=== PATIENT | female | born 1930 | race Caucasian/White ===

== ENCOUNTER 2016-07-09 20:16 | Inpatient (IN) | payer OTHER ==
--- NOTE | ~2016-07-09 | CR72 ---
[facility] A Service of [facility] RADIOLOGY TEXT RESULTS PATIENT: JUAN LUIS PUENTE LOCATION: [facility] : 32 UNIT #: [id number] AGE: [address]: Ghazala Larry MD SEX: F ORDER DR: [id number] [facility] [address] [place], [place] [address] [id number] E MR#: [id number] Acc #: [id number] NAME: JUAN LUIS PUENTE : 1930 SEX: F STUDY DATE/TIME: 07/09/2016 20:09 UNIT: [facility] ROOM: STUDY DESCRIPTION: CR Chest Single View Portable Attending Physician: Cullen England M.D. Ordering Physician: Ed Doctor [id number] [facility] Primary Care Physician: Adriana Oliva M.D. MEDICAL IMAGING REPORT This report is preliminary unless electronic signature is present EXAM Chest x-ray portable HISTORY Cough, weakness for 2 months. No cancer or hypertension history indicated. COMMENT Single frontal portable view of the chest timed 20:09 on 07/09/16, compared to a film from 07/08/2016. FINDINGS There is evidence for old granulomatous disease. There is mild cardiomediastinal silhouette enlargement unchanged to slightly increased from yesterday's film. Mild increased prominence of parenchymal and vascular markings. While there is no kun congestive failure, please correlate for any clinical concern for subtle volume overload, given history. There may be a small amount of airspace disease or scarring at the left base laterally. There is no pleural effusion or pneumothorax. IMPRESSION Mild cardiomediastinal silhouette enlargement and mild prominence of vascular and interstitial markings when compared yesterday's film. Please correlate for any clinical concern for subtle volume overload. There is no pleural effusion. There may be a small amount of airspace disease or parenchymal scarring at the left base laterally. There is no pneumothorax. Dictated by... Floresita Maldonado M.D. THIS IS AN ELECTRONICALLY VERIFIED REPORT [facility] A Service of [facility] RADIOLOGY TEXT RESULTS PATIENT: JUAN LUIS PUENTE LOCATION: [facility] [id number] : 32 UNIT #: [id number] AGE: [address]: Ghazala Larry MD SEX: F ORDER DR: Floresita Maldonado M.D. at 07/10/2016 12:01 AM GEOVANI/jeimy TD: 07/09/2016 22:41 JOB #: [id number] MEDICAL IMAGING REPORT COPY
--- NOTE | ~2016-07-09 | EKG ---
PATIENT: JUAN LUIS PUENTE UNIT #: [id number] Ventricular Rate: 78 BPM Atrial Rate: 78 BPM P-R Interval: 124 ms QRS Duration: 106 ms Q-T Interval: 356 ms QTC Calculation(Bezet): 405 ms P [place]: 59 degrees Calculated R [place]: -11 degrees Calculated T [place]: 34 degrees Diagnosis Line: Sinus rhythm with Premature atrial complexes Diagnosis Line: Otherwise normal ECG Diagnosis Line: No previous ECGs available Diagnosis Line: Confirmed by KAREEM GALLARDO MD ([id number]) on Diagnosis Line: 07/10/2016 8:02:35 AM INTERPRETING MD: TROY
--- NOTE | ~2016-07-09 | HP ---
Unit #: [id number] #: [id number] Patient: JUAN LUIS PUENTE [id number] [address] [place], [place] [address] [id number] I MR#: [id number] NAME: JUAN LUIS PUENTE ROOM: 471 Age: 85 Sex: F Admission Date: 07/09/2016 : 1930 Attending Physician: Ghazala Larry M.D. Primary Care Physician: Adriana Oliva M.D. HISTORY AND PHYSICAL 2nd REVISION CHIEF COMPLAINT Acute kidney injury. HISTORY This pleasant 85-year-old female with hyperlipidemia, hypothyroidism, DJD, is admitted for acute kidney injury. The patient states that she was recently evaluated this fall for decreased energy and some shortness of breath. [facility] scans, along with echo. She was unable to receive IV dye for the CT scans, as I believe her kidney function was likely borderline abnormal. She was seen recently by Dr. Garcia, started on Breo and was told that she will need CPAP or BiPAP, currently is in on nocturnal oxygen. Saw Dr. Oliva nurse practitioner yesterday and she is again experiencing decreasing energy. Labs were drawn and the patient was told to go to the ER because her creatinine was 2.6. The patient states that she has been eating well except for an episode of nausea and vomiting last week. Denies change in her urinary output, and no urinary symptoms. She presents to this emergency department with blood pressure of 173/95. Denies previous history of hypertension. Her creatinine is up from 2.1, up from a creatinine of 0.7 four years ago. Urine is suspicious for possible UTI, and the patient's calcium is elevated at 11.9. In the ER she was bolused with 500 mL of normal saline, given 1 g of Rocephin and referred for admission. Reviewing her medication she does take high dose Naprosyn, and does take calcium. She is not anemic. PAST MEDICAL HISTORY 1. Hyperlipidemia. 2. Recent diagnosis of asthma by Dr. Garcia and perhaps obstructive sleep apnea. 3. Skin cancer removed. 4. Hypothyroidism. 5. DJD. 6. Progressive weight loss, decreased energy, shortness of breath, being evaluated as an outpatient. 7. T and A. 8. D and C. 9. Cataract extraction. 10. Fibrocystic breast requiring surgery. 11. Oral surgery. ALLERGIES Unit #: [id number] #: [id number] Patient: JUAN LUIS PUENTE. HOME MEDICATIONS 1. Singulair 10 mg daily. 2. Patient is finishing a course of prednisone. 3. Breo Ellipta daily. 4. Albuterol as needed. 5. Bimatoprost eye drops daily. 6. Calcium plus D 1200 mg daily. 7. Zyrtec 10 mg daily as needed. 8. Synthroid 0.5 mg daily 9. Naprosyn 500 mg b.i.d. 10. Fish oil. 11. Zoloft 50 mg daily. 12. MiraLAX. 13. Zocor 20 mg q.h.s. FAMILY HISTORY Negative for heart or kidney disease. SOCIAL HISTORY The patient lives with her of about 65 years. Seldom drinks alcohol. Is a lifelong nonsmoker. REVIEW OF SYSTEMS Notable for some shortness of breath, hyperlipidemia, weight loss, progressive decreased energy, asthma, skin cancer excised, hypothyroidism, DJD, above mentioned surgeries. All other systems were reviewed and are negative. PHYSICAL EXAMINATION GENERAL: Pleasant, thin, 85-year-old female currently in no acute distress. VITAL SIGNS: Temperature 98, pulse 83, respirations 15, blood pressure 173/95, O2 saturations 93% on room air. HEENT: Eyes - PERRLA. Extraocular muscles are intact, status post bilateral cataract extraction. Pharynx is benign. NECK: Supple without adenopathy or thyromegaly. CHEST: Reveals a few crackles at the bases. CARDIAC: Normal S1 and S2, occasionally irregular. No JVD is noted. ABDOMEN: Bowel sounds are present. No hepatosplenomegaly, tenderness, or masses. EXTREMITIES: Without clubbing, cyanosis or edema. Pedal pulses are present. NEUROLOGIC: Patient is awake, alert, and oriented. Cranial nerves are intact. Equal strength throughout. DIAGNOSTIC STUDIES ADMISSION LABS: Hematocrit is 35.1, white blood count is 12.7, normal platelet count. SMA 12 - BUN 43, creatinine 2.1, up from a creatinine of 0.7 four years ago. Calcium is 11.9. Urinalysis - positive leukocyte esterase with 10-25 white cells, 4+ bacteria, only occasional squamous epithelial cell noted. IMAGING STUDIES: Chest x-ray shows a slight increased cardiomegaly, mild increased interstitial markings. CARDIOLOGY STUDIES: EKG - sinus rhythm rate 78 with APCs. Unit #: [id number] #: [id number] Patient: JUAN LUIS PUENTE ASSESSMENT 1. Acute kidney injury, possible secondary to little dehydration and Naprosyn. But obviously need to recheck after hydration and workup further, if not improving after hydration and discontinuation of Naprosyn. 2. Hypercalcemia. 3. Again will hydrate and recheck. In the morning check an ionized calcium, along with serum protein electrophoresis and a parathyroid level. Calcium is not improving and will need further workup. 4. Dyspnea being followed by Dr. Garcia. 5. Possible obstructive sleep apnea. 6. Hypothyroidism. 7. Weight loss being worked up as an outpatient. 8. Probable UTI. 9. Newly elevated blood pressure. PLANS 1. IV hydration. 2. Discontinue calcium plus D and discontinue Naprosyn. Will check a renal ultrasound and post void bladder scan. Serum protein electrophoresis will also be obtained. 3. Recheck labs in the morning after hydration and discontinuation of above mentioned medications. Check thyroid function test, serum protein electrophoresis, ionized calcium. Also parathyroid hormone. If still hypercalcemic, will need further workup. 4. Monitor blood pressure and treat if persistently elevated. 5. DVT prophylaxis. 6. Obtain previous CT scans and echo report from [facility] done recently. 7. Rocephin pending urine C and S. 8. If renal function is not improving, etc, will ask consultants to see. 9. 1. Dictated by Franc Peters/gely TD: 07/10/2016 04:58 JOB #: [id number] HISTORY AND PHYSICAL X Ghazala Larry MD X HISTORY AND PHYSICAL
--- NOTE | ~2016-07-09 | US77 ---
[facility] A Service of [facility] RADIOLOGY TEXT RESULTS PATIENT: JUAN LUIS PUENTE LOCATION: [facility] : 32 UNIT #: [id number] AGE: [address]: Cuca Kahn MD SEX: F ORDER DR: [id number] [facility] [address] [facility] [place], [place] [address] [id number] I MR#: [id number] Acc #: [id number] NAME: JUAN LUIS PUENTE : 1930 SEX: F STUDY DATE/TIME: 07/10/2016 8:43 UNIT: [facility] ROOM: [facility] STUDY DESCRIPTION: US Kidney Bilateral Complete Attending Physician: Cuca Kahn M.D. Ordering Physician: Ghazala Larry M.D. Primary Care Physician: Adriana Oliva M.D. MEDICAL IMAGING REPORT This report is preliminary unless electronic signature is present EXAM Renal ultrasound INDICATIONS Acute kidney injury. BUN 39, creatinine 1.9, GFR 28.6 PROCEDURE Barron-scale and Doppler imaging of the kidneys and bladder. COMPARISON None FINDINGS Right kidney measures 9.9 cm. No hydronephrosis. Unremarkable bladder. Left kidney measures 12.1 cm, no hydronephrosis. IMPRESSION Negative renal ultrasound. Dictated by... Per Soriano M.D. THIS IS AN ELECTRONICALLY VERIFIED REPORT Per Soriano M.D. at 07/11/2016 7:13 AM RIAZD/jeimy TD: 07/10/2016 12:32 JOB #: [id number] MEDICAL IMAGING REPORT [facility] A Service [facility] RADIOLOGY TEXT RESULTS PATIENT: JUAN LUIS PUENTE LOCATION: [facility]05-18 : 32 UNIT #: [id number] AGE: [address]: Cuca Kahn MD SEX: F ORDER DR: COPY
[~2016-07-09 20:16] MED LIST: ALBUTEROL0.83 MG/ML INH; BENTYL10 MG PO; BIMATOPROST2.5 ML OU; BREO ELLIPTA I1 EACH INH; CALCIUM 600 +1 EAC7 PO; DELTASONE20 MG PO; FIORICET 50-321 EACH PO; FLONASE16 GM; LEVOXYL50 MC1 PO; MIRALAX17 GM PO; NAPROXEN500 M1 PO; OMEGA-3 FISH1200 MG PO; SERTRALINE HCL50 M1 PO; SIMVASTATIN20 MG PO; SINGULAIR PO; ZOFRAN ODT4 MG PO; ZYRTEC10 M1 PO
[2016-07-09 20:18] LABS: BASOPHIL% 0.2 % (0-2.5); EOSINOPHIL% 0.1 % (0.0-7.0); HEMATOCRIT 35.1 % (35.0-45.0); HEMOGLOBIN 11.7 gm/dL (12.0-16.0); LYMPHOCYTE# 0.8 X10e3 (1.0-3.5); LYMPHOCYTE% 6.3 % (17.0-45.0); MEAN CELL VOLUME 90.1 FL (83-96); MEAN CORPUSCULAR HGB CONC 33.2 g/dL (30-36); MEAN PLATELET VOLUME 8.5 FL (6.5-11.5); MONOCYTE# 0.4 X10e3 (0-1.0); MONOCYTE% 3.4 % (3.0-12.0); NEUTROPHIL# 11.5 X10e3 (1.5-7.1); PLATELET COUNT 233 X10e3 (140-420); RED BLOOD COUNT 3.89 X10e (3.90-5.30); RED CELL DISTRIBUTION WIDTH 13.4 % (11.0-15.5); WHITE BLOOD COUNT 12.7 X10e3 (4.0-10.5)
[2016-07-09 20:20] LABS: DIFF IND NO
[2016-07-09 20:31] LABS: BILIRUBIN, DIRECT 0.1 mg/dL (0.0-0.2); BILIRUBIN,TOTAL 1.1 mg/dL (0.2-2.0); BUN/CREATININE RATIO 20.47; CALCIUM SERUM 11.9 mg/dL (8.4-10.2); CREATININE SERUM 2.1 mg/dL (0.6-1.4); GLOM FILT RATE Estimated 23.9 mL/min (>60); POTASSIUM 4.2 mmol/L (3.5-5.1); PROTEIN TOTAL SERUM 7.4 g/dL (6.0-8.3)
[2016-07-09 21:07] LABS: URINE SOURCE CLEAN CATCH
[2016-07-09 21:43] LABS: URINE APPEARANCE CLEAR; URINE BILIRUBIN NEG (NEG); URINE BLOOD NEG (NEG); URINE COLOR YELLOW; URINE GLUCOSE NEG (NEG); URINE KETONE NEG (NEG); URINE LEUKOCYTE ESTERASE 1+ (NEG); URINE NITRATE NEG (NEG); URINE PH 6.5 (5-8); URINE PROTEIN NEG (NEG); URINE SPECIFIC GRAVITY 1.018 (1.003-1.035); URINE UROBILINOGEN 0.2 MG/DL (NEG)
[2016-07-09 21:45] LABS: CULTURE INDICATED? YES; URBCS1 AUWI 0-2 /[HPF] (0-2); URINE BACTERIA AUWI 4+ (NEGATIVE); URINE SQUAMOUS EPITHELIAL CELL OCC /[HPF]
[2016-07-10 05:51] LABS: BASOPHIL% 0.1 % (0-2.5); EOSINOPHIL% 0.4 % (0.0-7.0); HEMATOCRIT 31.1 % (35.0-45.0); HEMOGLOBIN 10.5 gm/dL (12.0-16.0); LYMPHOCYTE# 1.1 X10e3 (1.0-3.5); LYMPHOCYTE% 10.1 % (17.0-45.0); MEAN CELL VOLUME 90.1 FL (83-96); MEAN CORPUSCULAR HEMOGLOBIN 30.5 PG (28-34); MEAN CORPUSCULAR HGB CONC 33.8 g/dL (30-36); MEAN PLATELET VOLUME 8.1 FL (6.5-11.5); MONOCYTE# 1.2 X10e3 (0-1.0); NEUTROPHIL# 8.7 X10e3 (1.5-7.1); NEUTROPHIL% 78.4 % (40-75); PLATELET COUNT 196 X10e3 (140-420); RED BLOOD COUNT 3.46 X10e (3.90-5.30); RED CELL DISTRIBUTION WIDTH 13.2 % (11.0-15.5); WHITE BLOOD COUNT 11.1 X10e3 (4.0-10.5)
[2016-07-10 05:56] LABS: DIFF IND NO
[2016-07-10 06:41] LABS: THYROID STIMULATING HORMONE 0.68 uIU/ml (0.34-5.60)
[2016-07-10 06:48] LABS: FREE THYROXIN (T4) 0.99 ng/dL (0.58-1.64)
[2016-07-10 07:02] LABS: ALBUMIN SERUM 3.1 g/dL (3.5-5.0); BILIRUBIN,TOTAL 0.7 mg/dL (0.2-2.0); BUN/CREATININE RATIO 21.66; CALCIUM SERUM 10.3 mg/dL (8.4-10.2); CREATININE SERUM 1.8 mg/dL (0.6-1.4); GLOM FILT RATE Estimated 28.6 mL/min (>60); POTASSIUM 3.7 mmol/L (3.5-5.1); PROTEIN TOTAL SERUM 6.1 g/dL (6.0-8.3)
[2016-07-10 17:05] LABS: ALBUMIN SERUM 3.6 g/dL (3.5-5.0); BILIRUBIN,TOTAL 0.9 mg/dL (0.2-2.0); BUN/CREATININE RATIO 21.76; CREATININE SERUM 1.7 mg/dL (0.6-1.4); GLOM FILT RATE Estimated 30.5 mL/min (>60); POTASSIUM 3.6 mmol/L (3.5-5.1)
[2016-07-10] MEDS ORDERED: LEVAQUIN250 MG PO (17:58)
[2016-07-10] MEDS ORDERED: NORVASC PO (18:01)
[2016-07-15 22:14] LABS: SPE A1GLOB (PNL) 0.3 g/dL (0.2-0.3); SPE A2GLOB (PNL) 0.7 g/dL (0.5-0.9); SPE ALB (PNL) 3.2 g/dL (3.8-4.8); SPE BETA 1 GLOBULIN 0.3 g/dL (0.4-0.6); SPE BETA 2 GLOBULIN 0.2 g/dL (0.2-0.5); SPETP (PNL) 5.7 g/dL (6.1-8.1)
== END 2016-07-10 18:40 | disposition home or self-care (01) | DRG 683 ==
LOC: CED 20:16 → CEDOF 23:15 → C4C 07-10 00:20
PROVIDERS: Emergency Medicine; Internal Medicine
DX: N17.9 Acute kidney failure, unspecified (principal); N39.0 Urinary tract infection, site not specified; E86.0 Dehydration; E83.52 Hypercalcemia; E78.5 Hyperlipidemia, unspecified; E03.9 Hypothyroidism, unspecified; Z98.49 Cataract extraction status, unspecified eye; Z88.5 Allergy status to narcotic agent
CPT/HCPCS: 36415; 71010; 76770; 80048; 80053; 80076; 81003; 82310; 82330; 82607; 83970; 84165; 84439; 84443; 85025; 87086; 87088; 87186; 93005; 94640; 94760; 99285; J0696

== ENCOUNTER → 2016-08-27 | Outpatient (CLI) | payer OTHER ==
[~2016-08-27] MED LIST changes: +LEVAQUIN250 MG PO; +NORVASC PO
== END | disposition home or self-care (01) ==
LOC: CECH 12:29
DX: I45.10 Unspecified right bundle-branch block (principal); R06.02 Shortness of breath; R53.83 Other fatigue
CPT/HCPCS: 93306

== ENCOUNTER 2016-09-09 19:18 | Inpatient (IN) | payer OTHER ==
--- NOTE | ~2016-09-09 | MR113 ---
[facility] A Service of [facility] RADIOLOGY TEXT RESULTS PATIENT: JUAN LUIS PUENTE LOCATION: [facility] 242-01 : 32 UNIT #: [id number] AGE: [address]: Traci Le MD SEX: F ORDER DR: [id number] [facility] [address]. [place], [place] [address] [id number] I MR#: [id number] Acc #: [id number] NAME: JUAN LUIS PUENTE : 1930 SEX: F STUDY DATE/TIME: 09/10/2016 9:24 UNIT: [facility] ROOM: [facility] STUDY DESCRIPTION: MR Lumbar Wo Contrast Attending Physician: Traci Le M.D. Ordering Physician: Ghazala Larry M.D. Primary Care Physician: Adriana Oliva M.D. MRI CENTER REPORT This report is preliminary unless electronic signature is present. EXAM Lumbar spine MRI, no contrast, 09/10/2016. PROCEDURE Routine unenhanced lumbar spine MRI. COMPARISON None HISTORY Low back and bilateral leg pain radiating to knees for about 2 months. FINDINGS There is a grade 1 L4-L5 degenerative anterolisthesis without pars defect. Alignment is otherwise normal. There are degenerative marrow signal changes around the L4-L5 disc, but bone marrow signal is otherwise normal, and the distal cord and conus are normal in position and appearance. At L1-L2, there is a slight disc bulge, but no canal stenosis. There is borderline left and no right foraminal stenosis. At L2-L3, there is a slight disc bulge and mild canal stenosis and mild right and left foraminal stenosis. At L3-L4, there is a broad disc bulge and facet arthropathy and mild to moderate canal stenosis and mild left and borderline to mild foraminal stenosis. At L4-L5, there is anterolisthesis, pseudo disc bulge, facet arthropathy, and moderate canal stenosis and moderate or moderate to severe right and mild to moderate left foraminal stenosis. [facility] A Service of [facility] RADIOLOGY TEXT RESULTS PATIENT: JUAN LUIS PUENTE LOCATION: A 242-01 : 32 UNIT #: [id number] AGE: [address]: Traci Le MD SEX: F ORDER DR: At L5-S1, there is degenerative change and towq-wofxjux-jydr-right facet arthropathy, but no canal stenosis, and moderate left and no right foraminal stenosis. IMPRESSION Degenerative changes with areas of canal and foraminal narrowing above. Overall, changes are most pronounced at L4-L5, where there is a degenerative grade 1 anterolisthesis and moderate canal stenosis. See above for lioxr-zi-wvcni details. Dictated by... Joe Sharp M.D. THIS IS AN ELECTRONICALLY VERIFIED REPORT Joe Sharp M.D. at 09/11/2016 3:53 PM ESTELLE/amita TD: 09/10/2016 12:44 JOB #: [id number] MRI CENTER REPORT Page 1 of 1 COPY
--- NOTE | ~2016-09-09 | CT4 ---
[facility] A Service of [facility] RADIOLOGY TEXT RESULTS PATIENT: JUAN LUIS PUENTE LOCATION: [facility] : 32 UNIT #: [id number] AGE: [address]: Traci Le MD SEX: F ORDER DR: [id number] [facility] [address] [place], [place] [address] [id number] I MR#: [id number] Acc #: [id number] NAME: JUAN LUIS PUENTE : 1930 SEX: F STUDY DATE/TIME: 09/10/2016 9:04 UNIT: C2A ROOM: 242 STUDY DESCRIPTION: CT Abd and Pelv Wo Cont Attending Physician: Traci Le M.D. Ordering Physician: Ghazala Larry M.D. Primary Care Physician: Adriana Oliva M.D. MEDICAL IMAGING REPORT This report is preliminary unless electronic signature is present EXAM CT abdomen and pelvis without contrast, 09/10/2016. PROCEDURE Axial CT abdomen and pelvis with oral contrast and multiplanar reformats. This CT exam was performed with one or more of the following radiation dose reduction techniques: automatic exposure control, adjustment of mA and/or kV according to patient size, and iterative reconstruction. COMPARISON STUDIES None CLINICAL HISTORY Back pain for 2 days and weight loss for six months. FINDINGS LUNG BASES: See accompanying chest CT. ABDOMEN: Unenhanced images of the liver, gallbladder, spleen, and pancreas are normal. The aorta is normal in caliber. The kidneys and adrenal glands are normal. Oral contrast has reached the transverse colon at the time of the exam. There is no evidence of bowel obstruction. There is some left colonic and sigmoid diverticulosis but there is no CT evidence to suggest diverticulitis. The appendix is normal. The aorta is normal in caliber. IMPRESSION 1. No acute findings. [facility] A Service [facility] RADIOLOGY TEXT RESULTS PATIENT: JUAN LUIS PUENTE LOCATION: [facility] : 32 UNIT #: [id number] AGE: [address]: Traci Le MD SEX: F ORDER DR: 2. Diverticulosis without diverticulitis. 3. Normal appendix. 4. No evidence of renal or bowel or biliary obstruction. Dictated by... Joe Sharp M.D. THIS IS AN ELECTRONICALLY VERIFIED REPORT Joe Sharp M.D. at 09/11/2016 3:53 PM ESTELLE/kamar TD: 09/10/2016 11:24 JOB #: [id number] MEDICAL IMAGING REPORT Page 1 of 1 COPY
--- NOTE | ~2016-09-09 | HP ---
Unit #: [id number] #: [id number] Patient: JUAN LUIS PUENTE [id number] [facility]. [place], [place] [address] [id number] I MR#: [id number] NAME: JUAN LUIS PUENTE. ROOM: 242 Age: 85 Sex: F Admission Date: 09/09/2016 : 1930 Attending Physician: Ghazala Larry M.D. Primary Care Physician: Adriana Oliva M.D. HISTORY AND PHYSICAL CHIEF COMPLAINT Acute on chronic kidney disease with hypercalcemia. HISTORY OF PRESENT ILLNESS This 85-year-old female with hyperlipidemia, hypertension, hypothyroidism, is admitted for acute on chronic kidney disease. The patient states that over the past week she has been a bit nauseous and fatigued. She was seen by her nurse practitioner yesterday and labs were performed showing worsening kidney function. She was, therefore, told to come to the emergency department today. In the ER, her current creatinine is 2.7 up from a creatinine of 1.7 in June. BUN is 24. The patient denies nonsteroidal antiinflammatory drugs. She states that she has been eating and drinking and urinating adequately. The patient was last admitted 06/2016 for acute on chronic kidney injury and was noted to be hypercalcemic at that time as well. Renal ultrasound was negative. She was found to have a low parathyroid hormone level, negative serum protein electrophoresis. She apparently had some CT scans last fall at [facility] due to progressive weight loss. She continues to have some weight loss, notes increasing lower back pain. On examination, she does have some shotty left axillary lymphadenopathy. Her calcium currently is 13.3. In June, her ionized calcium was elevated as well. Her thyroid function tests were normal. Currently, in the ER, she was bolused with a liter of saline and is referred for admission. She plans to see Dr. Paulino as an outpatient in November. PAST MEDICAL HISTORY 1. Hyperlipidemia. 2. Asthma and obstructive sleep apnea followed by Dr. Garcia. 3. Skin cancer removed. 4. Hypothyroidism. 5. DJD. 6. Progressive weight loss, decreased energy, shortness of breath 06/2016 for acute on chronic kidney disease. Again, renal ultrasound was negative. The patient was noted to be hypercalcemic. She had a negative serum protein electrophoresis, low parathyroid hormone level and an elevated ionized calcium. 7. T and A. 8. D and C. 9. Cataract extraction. 10. Fibrocystic breasts requiring surgery. 11. Oral surgery. Unit #: [id number] #: [id number] Patient: JUAN LUIS PUENTE SOCIAL HISTORY The patient lives with her of 65 years, seldom drinks alcohol, is a lifelong nonsmoker. FAMILY HISTORY Negative for heart and lung disease. ALLERGIES Codeine. HOME MEDICATIONS 1. The patient takes calcium I am told. 2. Zocor 20 mg daily. 3. Zoloft 50 mg daily. 4. Norvasc 5 mg daily. 5. B complex. 6. Fish oil. 7. Centrum Silver. 8. MiraLax. REVIEW OF SYSTEMS Notable for some back pain, feeling weak, tired, some nausea, hyperlipidemia, asthma, SAMEER, skin cancer, hypothyroidism, DJD, progressive weight loss, above-mentioned surgeries, chronic kidney disease, hypertension. All other systems were reviewed and are negative. PHYSICAL EXAMINATION GENERAL APPEARANCE: A pleasant, 85-year-old young appearing female currently in no acute distress. VITAL SIGNS: Temperature 97.8. Pulse 90. Respiration 16. Blood pressure 141/73. O2 saturation 100% on room air. HEENT: Eyes: PERRLA. Extraocular muscles are intact. Pharynx is benign. NECK: Supple without adenopathy or thyromegaly. CHEST: Clear. CARDIAC: Normal S1, S2 with a 2/6 systolic murmur heard best at the upper sternal borders. ABDOMEN: Bowel sounds are present. No hepatosplenomegaly, tenderness or masses. EXTREMITIES: Without edema. Pedal pulses are present. LYMPHATIC: There is shotty left axillary lymphadenopathy noted on exam. NEUROLOGIC: The patient is awake, alert, oriented. Cranial nerves are intact. Equal strength throughout. BACK: Without spinal percussion tenderness. Negative straight leg raising. DIAGNOSTIC STUDIES LABORATORY: Hematocrit 35.6, normal white count and platelet count. SMA-12: BUN 24, creatinine 2.7 up from a BUN of 37, creatinine 1.7 in June. Sodium 133, chloride 94, calcium 13.3 with a normal albumin. Urinalysis is negative. IMAGING: Chest x-ray: COPD, stable tortuous aorta, some linear findings at the lung bases. ASSESSMENT 1. Acute on chronic kidney disease. 2. Hypercalcemia. 3. Again, ionized calcium was elevated in June, low PTH, negative Unit #: [id number] #: [id number] Patient: JUAN LUIS PUENTE serum protein electrophoresis and normal thyroid function tests. Renal ultrasound was negative. 4. Progressive weight loss. 5. Obstructive sleep apnea. 6. Asthma. 7. Hypertension. 8. Hyperlipidemia. 9. Hypothyroidism. 10. Plain films of some new lower back pain. 11. Left axillary shotty lymphadenopathy. PLAN 1. Check urine protein electrophoresis and vitamin D levels. We will stop p.o. calcium. 2. Obtain MRI of the L/S spine. 3. CT scan of the chest and abdomen. 4. IV fluids at 200 mL/hour. Patient to receive a bolus of saline in the ER. 5. One dose of Zometa. 6. Nephrology consultation. 7. DVT prophylaxis. Dictated by Ghazala Larry M.D. AML/bd TD: 09/10/2016 06:16 JOB #: [id number] HISTORY AND PHYSICAL Page 1 of 1 X Ghazala Larry MD X HISTORY AND PHYSICAL
--- NOTE | ~2016-09-09 | DS ---
Unit #: [id number] #: [id number] Patient: JUAN LUIS PUENTE [id number] [address] [place], [place] [address] [id number] I MR#: [id number] NAME: JUAN LUIS PUENTE. ROOM: 242 Age: 85 Sex: F Admission Date: 09/09/2016 : 1930 Discharge Date: 09/11/2016 Attending Physician: Traci Le M.D. Primary Care Physician: Adriana Oliva M.D. DISCHARGE SUMMARY PRINCIPAL DIAGNOSES 1. Acute kidney injury on chronic kidney disease stage 3 to 4. Discharge creatinine 2.2. 2. Hypercalcemia with pending workup. Discharge calcium level 9.9. 3. Hypertension, controlled. 4. Hypothyroidism. 5. Asthma. 6. Weight loss. 7. Obstructive sleep apnea. 8. Normocytic anemia with discharge hemoglobin of 9.6. 9. Hypokalemia. 10. Mild protein malnutrition. 11. Hyperlipidemia. [employer]OR ATTENDANT Dr. Paulino, Nephrology. PROCEDURES 1. Chest x-ray, on September 09, 2016, with no acute abnormality. Cardiac enlargement is noted. Tortuous descending thoracic aorta stable. Hyperinflation of lungs noted. Interstitial densities in the bilateral lung bases, question chronic interstitial change. Densely calcified left hilar lymph node noted. 2. Chest CT without contrast, on September 10, 2016, which was negative. Linear density in the region of the lingula is noted consistent with scarring or atelectasis. Interstitial infiltrate is less likely. Large left hilar calcified granulomatous lymph node. No mediastinal mass or adenopathy. 3. CT scan of abdomen and pelvis without contrast, on September 10, 2016, with no acute findings. Diverticulosis noted. 4. MRI of the lumbar spine without contrast, on September 10, 2016, with degenerative changes with area of canal and foraminal narrowing noted most pronounced at L4-5 where there is degenerative grade 1 anterolisthesis and moderate canal stenosis. 5. 24-hour urine for kappa and lambda light chains in addition to urine protein electrophoresis which is currently pending. CLINICAL HISTORY AND HOSPITAL COURSE Ms. Puente is a very nice, 85-year-old female who presents to the emergency department with increasing nausea and fatigue. Lab work done as an outpatient revealed a creatinine of 2.7. The patient was found to be hyperkalemic. Calcium upon presentation was 13.3. The patient was subsequently admitted. Unit #: [id number] #: [id number] Patient: JUAN LUIS PUENTE Dr. Paulino was consulted in regards to patient's acute kidney injury. The patient was placed on IV fluids and creatinine is now decreased to 2.2. The patient states she is drinking plenty of water at home. CT scan of abdomen and pelvis did not reveal any urinary obstruction. Twenty-four urine is currently pending. The patient will follow up with Dr. Paulino as an outpatient. In regards to patient's hyperkalemia, she was started on high dose IV fluids and given a single dose of Zometa. Calcium is now decreased to 9.9. The patient informs me she was taking calcium supplements since early August per the instruction of Dr. Oliva. I have informed patient she needs to stop this. Workup for mild hypocalcemia in June revealed a low parathyroid hormone with a negative serum protein electrophoresis and elevated ionized calcium. Here, she has a parathyroid-related peptide pending in addition to a 24-hour urine protein electrophoresis and a 24-hour urine for kappa and lambda light chains pending. CT scan of chest, abdomen and pelvis did not reveal any underlying malignancy. LEXI inhibitor levels are also pending. This can be followed up as an outpatient and, again, I have instructed patient to avoid any calcium supplements over the counter. The patient is also mildly anemic with a hemoglobin of 9.6 which appears to be decreasing. This may be related to her underlying chronic kidney disease plus or minus hydration. The patient is also complaining of fatigue and weight loss but she does not eat much at home and I cannot find any obvious source of her fatigue. Vitamin B12 levels here in June were actually elevated and thyroid function is normal. I have encouraged the patient to increase her oral intake and, again, I have discussed avoiding antacids, though she denies taking any, and drinking excessive amounts of milk. The patient will be discharged home later today with close followup. DISCHARGE CONDITION Stable. DISCHARGE STATUS Discharged to home. DISCHARGE MEDICATIONS 1. Norvasc 10 mg daily. Note this is a dose increase. 2. Zoloft 50 mg daily. 3. MiraLax 17 g p.o. daily. 4. Simvastatin 20 mg at bedtime. 5. Fish oil 1,200 mg daily. 6. Levothyroxine 50 mcg p.o. at bedtime. DISCHARGE INSTRUCTION The patient is instructed to avoid all of her calcium supplements and I have instructed her to hold her daily multivitamin. She can otherwise follow a regular diet and increase her activity as tolerated. FOLLOWUP The patient will follow up with a BMP in one week with results faxed to Dr. Paulino and/or his partners. The patient should follow up with Dr. Oliva in approximately one month and follow up with Dr. Paulino and/or his partners per their instruction. Unit #: [id number] #: [id number] Patient: JUAN LUIS PUENTE Dictated by... Franc Murrieta/zoe TD: 09/12/2016 07:19 JOB #: [id number] DISCHARGE SUMMARY Page 1 of 1 X Traci Le MD X DISCHARGE SUMMARY
--- NOTE | ~2016-09-09 | CT57 ---
[facility] A Service of [facility] & [facility] RADIOLOGY TEXT RESULTS PATIENT: JUAN LUIS PUENTE LOCATION: A 242-01 : 32 UNIT #: [id number] AGE: [address]: Traci Le MD SEX: F ORDER DR: [id number] [facility] [address] [place], [place] [address] [id number] I MR#: [id number] Acc #: [id number] NAME: JUAN LUIS PUENTE : 1930 SEX: F STUDY DATE/TIME: 09/10/2016 9:00 UNIT: [facility] ROOM: [facility], [facility] STUDY DESCRIPTION: CT Chest Wo Cont Attending Physician: Traci Le M.D. Ordering Physician: Gabino Toure M.D. Primary Care Physician: Adriana Oliva M.D. MEDICAL IMAGING REPORT This report is preliminary unless electronic signature is present EXAM Chest CT without contrast 09/10/2016 PROCEDURE Axial unenhanced chest CT with multiplanar reformats. This CT examination was performed with one or more of the following radiation dose reduction techniques: automatic exposure control, adjustment of mA and/or kV according to patient size, and iterative reconstruction. COMPARISON None. HISTORY 2 day history of back pain, weight loss of 15 pounds over 6 months. FINDINGS There is no pulmonary infiltrate, pleural effusion, pneumothorax or suspicious nodule. Some linear densities at the left lung base, likely atelectasis or scarring. Conceivably, it could represent some mild interstitial infiltrate but that is felt less likely. There is a large left hilar granulomatous lymph node but otherwise no mediastinal mass or adenopathy is seen. The thoracic aorta is within normal limits for size. Images of the upper abdomen are unremarkable. There is mild spinal degenerative change but no acute bony abnormality. IMPRESSION 1. Negative chest CT. Minimal linear density in the region of the lingula is likely scarring or possibly atelectasis. Interstitial infiltrate is possible but felt less likely. There is no consolidation or suspicious nodule. 2. Large left hilar calcified granulomatous lymph node or nodes but no mediastinal mass or adenopathy. [facility] A Service of [facility] & [facility] RADIOLOGY TEXT RESULTS PATIENT: JUAN LUIS PUENTE LOCATION: [facility] 242-01 : 32 UNIT #: [id number] AGE: [address]: Traci Le MD SEX: F ORDER DR: 3. Incidentally noted coronary atherosclerotic vascular calcification. Dictated by... Joe Sharp M.D. THIS IS AN ELECTRONICALLY VERIFIED REPORT Joe Sharp M.D. at 09/11/2016 3:53 PM ESTELLE/ramirez TD: 09/10/2016 11:22 JOB #: [id number] MEDICAL IMAGING REPORT Page 1 of 1 COPY
--- NOTE | ~2016-09-09 | CO ---
Unit #: [id number] #: [id number] Patient: JUAN LUIS PUENTE [id number] [address] [place], [place] [address] [id number] I MR#: [id number] NAME: JUAN LUIS PUENTE ROOM: 242 Age: 85 Sex: F Admission Date: 09/09/2016 : 1930 Attending Physician: Traci Le M.D. Primary Care Physician: Adriana Oliva M.D. CONSULTATION REPORT REASON FOR CONSULTATION Hypercalcemia and acute kidney injury. HISTORY The patient is a very pleasant 85-year-old female who has history of hypertension, hyperlipidemia and hypothyroidism who recently has been complaining of feeling weak. The patient says she has been wobbly. Also has been complaining of increased thirst. The patient, on admission, was noted to be hypercalcemic. She had a serum calcium, which was elevated to 13.3. She was started on intravenous hydration. She has also received Zometa. Recent evaluation of hypercalcemia revealed normal intact PTH levels and normal serum protein electrophoresis. With hydration, her creatinine now has decreased to 2.5. Serum calcium has decreased to 11.2. The patient denies any history of jgfb-yqc-assvucv calcium pills or vitamin D. No history of any NSAID use. She has no history of any kidney stones. No history of hematuria. No fever. No chills. She has had a cough on and off for the last few months and says she has been evaluated by a lung doctor and prescribed, I believe, bronchodilator. The patient had a scheduled appointment to see me in the clinic in November of 2016. PAST MEDICAL HISTORY 1. Hypertension. 2. Chronic kidney disease. 3. Hyperlipidemia. 4. Hypothyroidism. CURRENT MEDICATIONS 1. Zocor 20 mg p.o. q.h.s. 2. Synthroid 0.05 q.h.s. 3. Norvasc 5 mg daily. 4. MiraLAX 17 grams daily. 5. Zoloft 50 mg p.o. daily. 6. Fish oil 1 gram daily. 7. Heparin 5,000 units t.i.d. 8. Tylenol p.r.n. PERSONAL AND SOCIAL HISTORY Unit #: [id number] #: [id number] Patient: JUAN LUIS PUENTE She is a nonsmoker. No history of any alcohol abuse. PHYSICAL EXAMINATION VITAL SIGNS: Blood pressure was 167/94, pulse 77, T max 36.6. GENERAL: Examination shows no pallor, icterus, lymphadenopathy. NECK: Supple. HEENT: Throat clear. Pupils are bilaterally equal and react to light. ABDOMEN: Soft. It is nontender. There is no organomegaly. EXTREMITIES: Extremities reveal no edema. Peripheral pulses are essentially intact. CARDIOVASCULAR: Heart sounds are normal. There is no evidence of any murmur or rub. RESPIRATORY: Examination of the lungs show air entry is bilaterally equal. She has only occasional expiratory wheezes. DIAGNOSTIC STUDIES LABORATORY: She has a BUN of 24, creatinine 2.5, sodium 136, potassium 3.4, CO2 26, calcium 11.2, albumin 3.3. TSH was 0.68. Hemoglobin 10.5, hematocrit 30.2, platelets 197. Urinalysis revealed no evidence of protein, no blood in the urine. Showed only a few white blood cells with 4+ bacteria. ASSESSMENT 1. Patient with acute kidney injury on chronic kidney disease, likely secondary to intravascular volume. 2. Hypercalcemia. Serum PTH has been normal. Recent SPEP is normal. Will need to rule out light chain disease. She also had a chest x-ray recently, which has shown granulomatous disease and some hilar enlargement. Will need to also rule out sarcoidosis. 3. Hypertension. 4. Hyperlipidemia. PLAN 1. She had a few white blood cells in the urine. Will check a urine culture. 2. Agree with urine protein electrophoresis. Will also add free kappa and lambda chains to the 24-hour urine and, as well, will get serum levels. 3. Replace her potassium level. 4. Will obtain a CT of the chest without any intravenous contrast. 5. Will also rule out hypercalcemia of malignancy. Will get a PTH related peptide level. Will also check stool for occult blood. 6. Since the patient has received Zometa, will monitor serum calcium levels closely. 7. Further recommendations based on the hospital course. Dictated by... Roe Paulino M.D. DINESH/yanira TD: 09/10/2016 09:25 JOB #: [id number] Unit #: [id number] #: [id number] Patient: JUAN LUIS PUENTE CONSULTATION REPORT Page 1 of 1 X Roe Paulino MD CONSULTATION REPORT
--- NOTE | ~2016-09-09 | CR72 ---
[facility] A Service of [facility] RADIOLOGY TEXT RESULTS PATIENT: JUAN LUIS PUENTE LOCATION: [facility] : 32 UNIT #: [id number] AGE: [address]: Traci Le MD SEX: F ORDER DR: [id number] [facility] [address]. [place], [place] [address] [id number] E MR#: [id number] Acc #: [id number] NAME: JUAN LUIS PUENTE : 1930 SEX: F STUDY DATE/TIME: 09/09/2016 19:41 UNIT: [facility] ROOM: STUDY DESCRIPTION: CR Chest Single View Portable Attending Physician: Gabino Toure M.D. Ordering Physician: Gabino Toure M.D. Primary Care Physician: Adriana Oliva M.D. MEDICAL IMAGING REPORT This report is preliminary unless electronic signature is present EXAM AP radiographs of the chest. DATE OF EXAM 09/09/2016 HISTORY Weakness. Began 1 week ago. Short of air. Weakness, asthma, bronchitis, seasonal allergies. REPORT AP radiographs of the chest are presented. COMPARISON 07/09/2016 FINDINGS No acute bony abnormality. Stable cardiac enlargement. Mildly tortuous descending thoracic aorta is stable. The lungs appear hyperinflated, consistent with the given history of underlying asthma. Subtle linear interstitial densities at the bilateral lung bases, very slightly more pronounced than on prior examination. Correlate with any clinical concern for borderline basilar interstitial edema. Some of these may represent chronic interstitial change. There is no dense airspace disease, pleural effusion or pneumothorax, and no suspicious nodule. Densely calcified left hilar lymph node unchanged. Dictated by... Figueroa Guerrero M.D. [facility] A Service [facility] RADIOLOGY TEXT RESULTS PATIENT: JUAN LUIS PUENTE LOCATION: [facility] : 32 UNIT #: [id number] AGE: [address]: Traci Le MD SEX: F ORDER DR: THIS IS AN ELECTRONICALLY VERIFIED REPORT Figueroa Guerrero M.D. at 09/10/2016 11:06 PM Smita TD: 09/09/2016 22:56 JOB #: [id number] MEDICAL IMAGING REPORT Page 1 of 1 COPY
[2016-09-09 17:21] LABS: BASOPHIL# 0.1 X10e3 (0-0.3); BASOPHIL% 0.7 % (0-2.5); EOSINOPHIL# 0.2 X10e3 (0-0.7); EOSINOPHIL% 1.8 % (0.0-7.0); HEMATOCRIT 35.6 % (35.0-45.0); HEMOGLOBIN 11.7 gm/dL (12.0-16.0); LYMPHOCYTE# 1.4 X10e3 (1.0-3.5); LYMPHOCYTE% 13.3 % (17.0-45.0); MEAN CELL VOLUME 89.8 FL (83-96); MEAN CORPUSCULAR HEMOGLOBIN 29.4 PG (28-34); MEAN CORPUSCULAR HGB CONC 32.7 g/dL (30-36); MEAN PLATELET VOLUME 8.2 FL (6.5-11.5); MONOCYTE# 0.9 X10e3 (0-1.0); MONOCYTE% 8.6 % (3.0-12.0); NEUTROPHIL% 75.6 % (40-75); PLATELET COUNT 241 X10e3 (140-420); RED BLOOD COUNT 3.97 X10e (3.90-5.30); RED CELL DISTRIBUTION WIDTH 13.7 % (11.0-15.5); WHITE BLOOD COUNT 10.5 X10e3 (4.0-10.5)
[2016-09-09 17:29] LABS: DIFF IND NO
[2016-09-09 17:36] LABS: BUN/CREATININE RATIO 8.88; CALCIUM SERUM 13.3 mg/dL (8.4-10.2); CREATININE SERUM 2.7 mg/dL (0.6-1.4); GLOM FILT RATE Estimated 15.7 mL/min (>60); POTASSIUM 3.5 mmol/L (3.5-5.1)
[2016-09-09 21:38] LABS: URINE SOURCE CLEAN CATCH
[2016-09-09 21:43] LABS: URINE APPEARANCE CLEAR; URINE BILIRUBIN NEG (NEG); URINE BLOOD NEG (NEG); URINE COLOR YELLOW; URINE GLUCOSE NEG (NEG); URINE KETONE NEG (NEG); URINE LEUKOCYTE ESTERASE NEG (NEG); URINE NITRATE NEG (NEG); URINE PH 7.5 (5-8); URINE PROTEIN NEG (NEG); URINE SPECIFIC GRAVITY 1.002 (1.003-1.035); URINE UROBILINOGEN 0.2 MG/DL (NEG)
[2016-09-09 21:48] LABS: CULTURE INDICATED? NO
[2016-09-10 06:22] LABS: BASOPHIL# 0.1 X10e3 (0-0.3); BASOPHIL% 0.7 % (0-2.5); EOSINOPHIL# 0.4 X10e3 (0-0.7); EOSINOPHIL% 4.9 % (0.0-7.0); HEMATOCRIT 30.2 % (35.0-45.0); HEMOGLOBIN 10.5 gm/dL (12.0-16.0); LYMPHOCYTE# 1.5 X10e3 (1.0-3.5); LYMPHOCYTE% 18.2 % (17.0-45.0); MEAN CELL VOLUME 89.2 FL (83-96); MEAN CORPUSCULAR HEMOGLOBIN 31.2 PG (28-34); MEAN CORPUSCULAR HGB CONC 34.9 g/dL (30-36); MONOCYTE# 0.9 X10e3 (0-1.0); MONOCYTE% 11.5 % (3.0-12.0); NEUTROPHIL# 5.2 X10e3 (1.5-7.1); NEUTROPHIL% 64.7 % (40-75); PLATELET COUNT 197 X10e3 (140-420); RED BLOOD COUNT 3.38 X10e (3.90-5.30); RED CELL DISTRIBUTION WIDTH 13.8 % (11.0-15.5)
[2016-09-10 06:43] LABS: ALBUMIN SERUM 3.3 g/dL (3.5-5.0); BILIRUBIN,TOTAL 0.3 mg/dL (0.2-2.0); BUN/CREATININE RATIO 9.6; CREATININE SERUM 2.5 mg/dL (0.6-1.4); GLOM FILT RATE Estimated 17.2 mL/min (>60); POTASSIUM 3.4 mmol/L (3.5-5.1); PROTEIN TOTAL SERUM 6.2 g/dL (6.0-8.3)
[2016-09-10 06:45] LABS: CALCIUM SERUM 11.2 mg/dL (8.4-10.2)
[2016-09-10 06:52] LABS: DIFF IND NO
[2016-09-11 06:14] LABS: HEMATOCRIT 28.6 % (35.0-45.0); HEMOGLOBIN 9.6 gm/dL (12.0-16.0); MEAN CELL VOLUME 89.5 FL (83-96); MEAN CORPUSCULAR HEMOGLOBIN 29.9 PG (28-34); MEAN CORPUSCULAR HGB CONC 33.4 g/dL (30-36); MEAN PLATELET VOLUME 7.8 FL (6.5-11.5); RED BLOOD COUNT 3.2 X10e (3.90-5.30); RED CELL DISTRIBUTION WIDTH 13.8 % (11.0-15.5); WHITE BLOOD COUNT 6.3 X10e3 (4.0-10.5)
[2016-09-11 07:22] LABS: ALBUMIN SERUM 3.2 g/dL (3.5-5.0); BILIRUBIN,TOTAL 0.5 mg/dL (0.2-2.0); BUN/CREATININE RATIO 8.63; CALCIUM SERUM 9.9 mg/dL (8.4-10.2); CREATININE SERUM 2.2 mg/dL (0.6-1.4); GLOM FILT RATE Estimated 20.1 mL/min (>60); PHOSPHOROUS 2.6 mg/dL (2.5-4.6); POTASSIUM 3.7 mmol/L (3.5-5.1); PROTEIN TOTAL SERUM 5.8 g/dL (6.0-8.3)
[2016-09-13 23:07] LABS: PROTEIN/CREAT RATIO (UPE) 263 (<=84); UPE ALPHA 1 0 % (()); UPE ALPHA 2 0 % (()); UPE BETA 0 % (()); UPE CREAT 0.83 g/24 h (0.63-2.50); UPE GAMMA 0 % (()); UPEALB (PNL) 100 % (()); UPETP24 (PNL) 219 mg/24 h (<150); UPETV (PNL) 4375 mL (())
== END 2016-09-11 16:28 | disposition home or self-care (01) | DRG 683 ==
LOC: CED 19:18 → CEDOF 23:30 → C2A 09-10 00:31
PROVIDERS: Emergency Medicine; Internal Medicine; Internal Medicine Nephrology
DX: N17.9 Acute kidney failure, unspecified (principal); E44.1 Mild protein-calorie malnutrition; D64.9 Anemia, unspecified; E83.52 Hypercalcemia; I12.9 Hypertensive chronic kidney disease with stage 1 through stage 4 chronic kidney disease, or unspecified chronic kidney disease; N18.4 Chronic kidney disease, stage 4 (severe); E03.9 Hypothyroidism, unspecified; J45.909 Unspecified asthma, uncomplicated; G47.33 Obstructive sleep apnea (adult) (pediatric); E78.5 Hyperlipidemia, unspecified; Z85.828 Personal history of other malignant neoplasm of skin; Z98.49 Cataract extraction status, unspecified eye; Z88.5 Allergy status to narcotic agent; Z68.20 Body mass index [BMI] 20.0-20.9, adult; E87.6 Hypokalemia
CPT/HCPCS: 36415; 71010; 71250; 72148; 74176; 80048; 80053; 81003; 82274; 83519; 83883; 84100; 84165; 84681; 85025; 85027; 87086; 96360; 97162; 99285; G8978-GP; G8979-GP; G8980-GP; J1644; J3489

== ENCOUNTER → 2017-01-27 | Outpatient (CLI) | payer OTHER ==
--- NOTE | ~2017-01-27 | BD1 ---
[facility]. [facility] A Service of [facility] & [facility] RADIOLOGY TEXT RESULTS PATIENT: JUAN LUIS PUENTE LOCATION: [facility] : 32 UNIT #: [id number] AGE: [address]: Adriana Oliva MD SEX: F ORDER DR: [id number] [address] [address] [id number] O MR#: [id number] Acc #: [id number] NAME: JUAN LUIS PUENTE : 1930 SEX: F STUDY DATE/TIME: 01/27/2017 9:42 UNIT: [facility] ROOM: STUDY DESCRIPTION: Dexa Bone Dens 1+ Site Attending Physician: Adriana Oliva M.D. Referring Physician: Adriana Oliva M.D. Ordering Physician: Adriana Oliva M.D. Primary Care Physician: Adriana Oliva M.D. MEDICAL IMAGING REPORT This report is preliminary unless electronic signature is present. EXAM Bone densitometry, 01/27/2017. CLINICAL HISTORY 86-year-old female with osteoporosis. FINDINGS The bone mineral density of the lumbar spine (L1-L4) is calculated at 1.197 g/cm2. This correlates with a T-score of 0.1 and a Z-score of 2.4. This is classified as normal bone mineralization. The bone mineral density of the left proximal femoral neck is calculated at 0.83 g/sq cm. This correlates with a T-score of -1.1 and a Z-score of 1.4. This is classified as osteopenia. The bone mineral density of the right proximal femoral neck was calculated at 0.865 g/sq cm. This correlates with a T-score of -1.2, and a Z-score of 1.3. This is classified as osteopenia. IMPRESSION Osteopenia. Dictated by... Jeremiah White M.D. THIS IS AN ELECTRONICALLY VERIFIED REPORT Jeremiah White M.D. at 01/27/2017 6:38 PM JULIEN/rhonda TD: 01/27/2017 18:30 JOB #: [id number] [facility] A Service of [facility] & [facility] RADIOLOGY TEXT RESULTS PATIENT: JUAN LUIS PUENTE LOCATION: [facility] : 32 UNIT #: [id number] AGE: [address]: Adriana Oliva MD SEX: F ORDER DR: MEDICAL IMAGING REPORT Page 1 of 1
== END | disposition home or self-care (01) ==
LOC: SRAD 01-26 10:00
DX: M81.0 Age-related osteoporosis without current pathological fracture (principal); M85.80 Other specified disorders of bone density and structure, unspecified site
CPT/HCPCS: 77080